=== PATIENT | male | born 2000 | race Caucasian/White ===

== ENCOUNTER 2023-06-06 00:02 | Emergency (ER) | payer SELFPAY ==
[~2023-06-06] VITALS: Ht 177.8 cm; Wt 82.0 kg
[2023-06-06 00:07] VITALS: O2SAT 97
[2023-06-06] MEDS ORDERED: HYDROCODONE/ACETAMINOPHEN 5/325MG TABLET PO ONE (00:30)
[2023-06-06] MEDS ORDERED: PROPOFOL 200MG/20ML VIAL IV ONE (00:30)
[2023-06-06] MEDS ORDERED: KETAMINE HCL 50 MG/ML 10ML IV ONE (00:30)
[2023-06-06 00:42] VITALS: TEMP 98.4
[2023-06-06] MEDS ORDERED: SODIUM CHLORIDE 0.9% 1,000 ML IV ONE (00:45)
[2023-06-06 01:12] VITALS: BP 127/76; PULSE 107; RESP 16
[2023-06-06] MEDS ORDERED: NAPR-1074 MT (01:13)
== END 2023-06-06 01:46 | disposition home or self-care (01) ==
LOC: ER 00:02
DX: S43.005A Unspecified dislocation of left shoulder joint, initial encounter (principal); X58.XXXA Exposure to other specified factors, initial encounter; Y93.89 Activity, other specified; Y92.89 Other specified places as the place of occurrence of the external cause; Y99.8 Other external cause status
CPT/HCPCS: 73030; 99283; J2704; J7030; Z7610; A4565; J3490